=== PATIENT | female | born 1985 | race Caucasian/White ===

== ENCOUNTER 2017-01-08 18:38 | Emergency (ER) | payer OTHER ==
[2017-01-08 18:50] VITALS: BP 156/97
[2017-01-08] MEDS ORDERED: IBUPROFEN 600 MG TABLET PO STA (20:42)
--- NOTE | 2017-01-08 21:32 | XRAY Preliminary Report ---
Exam: XR Tib/Fib LT IMPRESSION: No bony abnormality. [facility] SITE ID: [id number]
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
== END 2017-01-08 21:46 | disposition home or self-care (01) ==
LOC: ED 18:38
DX: S80.12XA Contusion of left lower leg, initial encounter (principal); V43.62XA Car passenger injured in collision with other type car in traffic accident, initial encounter
CPT/HCPCS: 99282; 99284